=== PATIENT | male | born 1940 | race Hispanic/Latino ===

== ENCOUNTER 2017-07-23 09:37 | Outpatient (CLI) | payer MEDICARE ==
--- NOTE | 2017-07-23 11:04 | PRG ---
DATE OF SERVICE: 07/23/2017 HISTORY: Mr. Gilson Lindsay is a very pleasant 76-year-old gentleman accompanied by his son, who present s to the [facility] for evaluation of an ulceration of the left heel. A bone scan obtained on 03/2017 revealed white blood cell accumulation at the posterior aspect of the left calcaneus consisten t with ongoing infection. The patient was previously seen in consultation by Dr. Brent Birmingham. The patient's son previously stated that he and the patient were told that antibiotic therapy was not wa rranted. The patient continues to receive dressing changes of Medihoney for the ulceration of the le ft heel 3 times per week after cleansing and irrigation with the assistance of Home Health. The davina ent's son again states that Mr. Lindsay is utilizing his Heelift boot at all times. PHYSICAL EXAMINATION: VITAL SIGNS: Temperature 97.5, pulse 78, respirations 18, blood pressure 129/57. Accu-Chek 145. EXTREMITIES: The ulceration of the left heel measures approximately 0.5 x 0.7 cm. The dimensions of the wound at the time of the patient's visit on 05/16/2017 were approximately 1.5 x 0.9 cm. Granula tion tissue is present within the wound margins. No purulent drainage is associated with the wound. No erythema of the skin surrounding the wound is present. No maceration of the skin of the periwoun d is noted. No significant edema of the left foot or lower leg is present on exam today. ASSESSMENT AND PLAN: 1. Left heel ulceration as described above. Dressing changes of Medihoney, 4 x 4s, and Kerlix will be continued 3 times per week after cleansing and irrigation with the assistance of Home Health. The patient is to continue to utilize his Heelift boot at all times. As stated above, the patient has b een seen in consultation by Dr. Brent Birmingham of Infectious Diseases. The patient's son previously s tated that he and the patient were told that antibiotic therapy was not warranted. I will see Mr. Me schmidt again in 3 weeks. 2. Diabetes mellitus. The patient's Accu-Chek in clinic today is 145. The patient has been reminde d that for optimal wound healing, his blood glucoses should remain below 150. 3. Hypothyroidism. 4. End-stage renal disease. 5. History of atrial fibrillation. 6. Gastroesophageal reflux disease. 7. Prostate carcinoma, status post radiation therapy. 8. Skin carcinoma.
== END 2017-07-23 09:38 | disposition home or self-care (01) ==
LOC: WCC 09:37
PROVIDERS: ATTEND Family Medicine
DX: L97.429 Non-pressure chronic ulcer of left heel and midfoot with unspecified severity (principal); E11.622 Type 2 diabetes mellitus with other skin ulcer; E03.9 Hypothyroidism, unspecified; E11.22 Type 2 diabetes mellitus with diabetic chronic kidney disease; N18.6 End stage renal disease; K21.9 Gastro-esophageal reflux disease without esophagitis; C44.90 Unspecified malignant neoplasm of skin, unspecified
CPT/HCPCS: 97602

== ENCOUNTER 2017-08-13 09:29 | Outpatient (CLI) | payer MEDICARE ==
--- NOTE | 2017-08-13 10:23 | PRG ---
DATE OF SERVICE: 08/13/2017 HISTORY: Mr. Gilson Lindsay is a very pleasant 76-year-old gentleman accompanied by his son who prese nts to the Wound Center for evaluation of an ulceration of the left heel. A bone scan obtained on revealed white blood cell accumulation at the posterior aspect of the left calcaneus consist ent with ongoing infection. The patient was previously seen in consultation by Dr. Brent Birmingham. T he patient's son previously stated that he and the patient was told that antibiotic therapy was not w arranted. The patient continues to receive dressing changes of Medihoney for the ulceration of the l eft heel 3 times per week after cleansing and irrigation with the assistance of Home Health. Again, the patient's son states that Mr. Lindsay is utilizing his Heelift boot at all times. PHYSICAL EXAMINATION: VITAL SIGNS: Temperature 97.6, pulse 77, respirations 18, blood pressure 118/44. Accu-Chek 259. EXTREMITIES: The ulceration of the left heel measures approximately 0.5 x 0.2 cm. The dimensions of the wound at the time of the patient's visit on 07/23/2017 were approximately 0.5 x 0.7 cm. Granula tion tissue is present within the wound margins. No purulent drainage is associated with the wound. No erythema of the skin surrounding the wound is present. No maceration of the skin of the periwoun d is noted. No significant edema of the left foot or lower leg is present on exam today. ASSESSMENT AND PLAN: 1. Left heel ulceration as described above. Dressing changes of Medihoney will be discontinued. Dr messina changes of Silvercel, 4 x 4s and Kerlix are to be performed 3 times per week after cleansing a nd irrigation with the assistance of Home Health. The patient is to continue to utilize his Heelift boot at all times. As stated above, the patient has been seen in consultation by Dr. Brent maya f Infectious Diseases. The patient's son previously stated that he and the patient were told that an tibiotic therapy was not warranted. I will see Mr. Lindsay again in 3-4 weeks if his wound is still pr esent at this time. 2. Diabetes mellitus. The patient's Accu-Chek in clinic today is 259. The patient has been reminde d that for optimal wound healing, his blood glucoses should remain below 150. 3. Hypothyroidism. 4. End-stage renal disease. 5. History of atrial fibrillation. 6. Gastroesophageal reflux disease. 7. Prostate carcinoma, status post radiation therapy. 8. Skin carcinoma.
[2017-08-13] MEDS ORDERED: Sodium Chloride 0.9% 15 ML NEB ONE (17:06)
== END 2017-08-13 09:30 | disposition home or self-care (01) ==
LOC: WCC 09:29
PROVIDERS: ATTEND Family Medicine
DX: E11.621 Type 2 diabetes mellitus with foot ulcer (principal); L97.429 Non-pressure chronic ulcer of left heel and midfoot with unspecified severity; E11.22 Type 2 diabetes mellitus with diabetic chronic kidney disease; E03.9 Hypothyroidism, unspecified; N18.6 End stage renal disease; K21.9 Gastro-esophageal reflux disease without esophagitis; I48.91 Unspecified atrial fibrillation; C61 Malignant neoplasm of prostate; C44.90 Unspecified malignant neoplasm of skin, unspecified
CPT/HCPCS: 36416; 97602; A4218

== ENCOUNTER 2017-09-10 10:01 | Outpatient (CLI) | payer MEDICARE ==
--- NOTE | 2017-09-10 11:19 | PRG ---
DATE OF SERVICE: 09/10/2017 HISTORY: Mr. Gilson Lindsay is a very pleasant 76-year-old gentleman accompanied by his son who prese nts to the Wound Center for evaluation of an ulceration of the left heel. A bone scan obtained on revealed white blood cell accumulation at the posterior aspect of the left calcaneus consist ent with ongoing infection. The patient was previously seen in consultation by Dr. Brent Birmingham. T he patient's son previously stated that he and the patient were told that antibiotic therapy was not warranted. The patient has been receiving dressing changes of Silvercel for the ulceration of the le ft heel 3 times per week after cleansing and irrigation with the assistance of the patient's . T he patient's son states that Mr. Lindsay is no longer utilizing his Heelift boot. PHYSICAL EXAMINATION: VITAL SIGNS: Temperature 97.3, pulse 85, respirations 17, blood pressure 128/59, Accu-Chek 125. EXTREMITIES: The ulceration of the left heel measures approximately 0.8 x 0.9 cm. The dimensions of the wound at the time of the patient's visit on 08/13/2017 were approximately 0.5 x 0.2 cm. Granula tion tissue is present within the wound margins. No purulent drainage is associated with the wound. No erythema of the skin surrounding the wound is present. No maceration of the skin of the periwoun d is noted. No significant edema of the left foot or lower leg is present on exam today. ASSESSMENT AND PLAN: 1. Left heel ulceration as described above. Dressing changes of Silvercel and bordered gauze are to be performed 3 times per week after cleansing and irrigation with the assistance of the patient's wi fe. I have encouraged the patient to utilize his Heelift boot at least at night. As stated above, t he patient has been seen in consultation by Dr. Brent Birmingham of Infectious Diseases. The patient's son previously stated that he and the patient were told that antibiotic therapy was not warranted. I will see Mr. Lindsay again in four weeks if the wound is still present at this time. 2. Diabetes mellitus. The patient's Accu-Chek in clinic today is 125. The patient has been reminde d that for optimal wound healing, his blood glucoses should remain below 150. 3. Hypothyroidism. 4. End-stage renal disease. 5. History of atrial fibrillation. 6. Gastroesophageal reflux disease. 7. Prostate carcinoma, status post radiation therapy.
[2017-09-10] MEDS ORDERED: Lidocaine 2% Jelly 5 ML TUBE ONE (13:31)
[2017-09-10] MEDS ORDERED: Sodium Chloride 0.9% 15 ML NEB ONE (13:31)
== END 2017-09-10 10:02 | disposition home or self-care (01) ==
LOC: WCC 10:01
PROVIDERS: ATTEND Family Medicine
DX: E11.621 Type 2 diabetes mellitus with foot ulcer (principal); L97.429 Non-pressure chronic ulcer of left heel and midfoot with unspecified severity; E03.9 Hypothyroidism, unspecified; E11.22 Type 2 diabetes mellitus with diabetic chronic kidney disease; N18.6 End stage renal disease; I48.91 Unspecified atrial fibrillation; K21.9 Gastro-esophageal reflux disease without esophagitis; Z85.46 Personal history of malignant neoplasm of prostate
CPT/HCPCS: 97602; A4218

== ENCOUNTER 2017-10-15 09:50 | Outpatient (CLI) | payer MEDICARE ==
--- NOTE | 2017-10-15 11:04 | PRG ---
DATE OF SERVICE: 10/15/2017 HISTORY: Mr. Gilson Lindsay is a very pleasant 77-year-old gentleman accompanied by his son who prese nts to the [facility]ound Center for evaluation of an ulceration of the left heel. A bone scan obtained on revealed white blood cell accumulation at the posterior aspect of the left calcaneus consist ent with ongoing infection. The patient was previously seen in consultation by Dr. Brent Birmingham. T he patient's son previously stated that he and the patient were told that antibiotic therapy was not warranted. The patient has been receiving dressing changes of Silvercel for the ulceration of the le ft heel 3 times per week after cleansing and irrigation with the assistance of Home Health. The davina ent's son states that Mr. Lindsay has also been utilizing his Heelift boot as previously prescribed. PHYSICAL EXAMINATION: VITAL SIGNS: Temperature 97.5, pulse 69, respirations 18, and blood pressure 87/43. EXTREMITIES: The ulceration of the left heel measures approximately 0.2 x 0.6 cm. The dimensions of the wound at the time of the patient's visit on 09/10/2017 were approximately 0.8 x 0.9 cm. Granula tion tissue is present within the wound margins. No purulent drainage is associated with the wound. No erythema of the skin surrounding the wound is present. No maceration of the skin of the periwoun d is noted. No significant edema of the left foot is present on exam today. ASSESSMENT AND PLAN: 1. Left heel ulceration as described above. Dressing changes of Silvercel and bordered gauze will b e continued 3 times per week after cleansing and irrigation with the assistance of Home Health. I love ve asked the patient to continue to utilize his Heelift boot at all times. As stated above, the davina ent has been seen in consultation by Dr. Brent Birmingham of Infectious Diseases. The patient's son pre viously stated that he and the patient were told that antibiotic therapy was not warranted. I will s ee Mr. Lindsay again in 4 weeks if the wound is still present at this time. 2. Diabetes mellitus. Accu-Cheks will be obtained at the time of the patient's clinic visits. The patient has been reminded that for optimal wound healing, his blood glucoses should remain below 150. 3. Hypothyroidism. 4. End-stage renal disease. 5. History of atrial fibrillation. 6. Gastroesophageal reflux disease. 7. Prostate carcinoma, status post radiation therapy.
[2017-10-15] MEDS ORDERED: Sodium Chloride 0.9% 15 ML NEB ONE (11:11)
== END 2017-10-15 09:51 | disposition home or self-care (01) ==
LOC: WCC 09:50
PROVIDERS: ATTEND Family Medicine
DX: E11.621 Type 2 diabetes mellitus with foot ulcer (principal); L97.429 Non-pressure chronic ulcer of left heel and midfoot with unspecified severity; E03.9 Hypothyroidism, unspecified; E11.22 Type 2 diabetes mellitus with diabetic chronic kidney disease; I48.91 Unspecified atrial fibrillation; K21.9 Gastro-esophageal reflux disease without esophagitis; N18.6 End stage renal disease; C61 Malignant neoplasm of prostate
CPT/HCPCS: 97602; A4218

== ENCOUNTER 2017-11-17 05:48 | Emergency (ER) | payer MEDICARE ==
[2017-11-17 06:58] LABS: ALT (SGPT) Less than 7 U/L (8-55); AST (SGOT) 16 U/L (5-34); Albumin 3.3 g/dL (3.4-4.8); Alkaline Phosphatase 65 U/L (40-150); Anion Gap 16 mmol/L (10-20); BUN (Urea Nitrogen) 46 mg/dL (8.4-25.7); Bilirubin, Total 0.8 mg/dL (0.2-1.2); Calc. Creatinine Clearance 0 mL/min (70-130); Calcium 8.8 mg/dL (7.8-10.44); Carbon Dioxide 24 mmol/L (23-31); Chloride 98 mmol/L (98-107); Estimated GFR-MDRD 16; Globulin 3.6 g/dL (2.4-3.5); Glucose 149 mg/dL (83-110); Potassium 4.6 mmol/L (3.5-5.1); Protein, Total 6.9 g/dL (5.8-8.1); Sodium 133 mmol/L (136-145)
[2017-11-17 07:03] LABS: CKMB 1.5 ng/mL (0-6.6); Troponin I 0.017 ng/mL (< 0.028)
[2017-11-17 07:10] LABS: #Basophils 0.1 thou/uL (0.0-0.2); #Eosinphils 0.1 thou/uL (0.0-0.7); #Lymphocytes 0.8 thou/uL (1.20-3.40); #Monocytes 0.6 thou/uL (0.11-0.59); #Neutrophils 6.6 thou/uL (1.40-6.50); %Basophils 1.2 % (0.0-1.0); %Eosinophils 1.4 % (0.0-10.0); %Lymphocytes 9.8 % (21.0-51.0); %Monocytes 7.2 % (0.0-10.0); %Neutrophils 80.5 % (42.0-75.0); Hemoglobin 11.4 g/dL (14.0-18.0); MDiff Complete? YES; Macrocytosis SLIGHT = 6-15 cells (100X) (0-5/hpf); Mean Corpuscular HGB CONC 31.5 g/dL (32.0-36.0); Mean Corpuscular Hemoglobin 35.5 pg (27.0-31.0); Mean Platelet Volume 8.9 fL (7.4-10.4); PLT Morphology Comment Appears Decreased; Platelet Count 88 thou/uL (130-400); RBC Distribution Width 16.3 % (11.5-14.5); Red Blood Cell (RBC) Count 3.23 mill/uL (4.70-6.10); White Blood Cell (WBC) Count 8.1 thou/uL (4.8-10.8)
--- NOTE | 2017-11-17 07:48 | CT ---
PRELIMINARY REPORT/[facility]/EMERGENCY AFTER HOURS PROCEDURE: EXAM: CT Head Without Intravenous Contrast CLINICAL HISTORY: 77 years old, male; Signs and symptoms; Other: Unresposnive; Patient HX: M77 was found this morning u nresponsive. Nh preformed sternal rub to try to wake him up. Ems arrived on scene and was about to st art chest compressions, when the pt woke up. Pt is now awake, and complaining of tailbone pain. Pt does dialysis sunday//sunday TECHNIQUE: Axial computed tomography images of the head/brain without intravenous contrast. COMPARISON: No relevant prior studies available. FINDINGS: Brain: Mild atrophy and white matter hypodensities compatible with chronic microvascular ischemic naomi nge. No hemorrhage. Ventricles: Normal. Bones/joints: Unremarkable. No acute fracture. Soft tissues: Normal. Sinuses: Unremarkable. Mastoid air cells: Unremarkable. No mastoid effusion. IMPRESSION: No acute findings. Thank you for allowing us to participate in the care of your patient. Dictated and Authenticated by: Nader Cooper MD 11/17/2017 7:33 AM Central Time ([place] & [place]) FINAL REPORT EMERGENT AFTER HOURS CT BRAIN: IMPRESSION: I agree with the preliminary interpretation given by [facility]. No evidence for intracranial hemorrhage or mass effect. Extensive atherosclerotic vascular calcifications are seen. POS: ANNELIESE
--- NOTE | 2017-11-17 08:27 | RAD ---
PORTABLE CHEST: Date: 11/17/17 PROVIDED CLINICAL HISTORY: Altered mental status. FINDINGS: Comparison is made with the study dated 11/20/16. Cardiac silhouette may be enlarged. There is opacification of much of the right hemithorax, which may be on the basis of pleural and/or parenchymal opacity. Some component of this may be on the basis of prominence of the mediastinal silhouette and consolidation of right hemidiaphragm. Patchy air space disease involves the left lung. No evidence for pneumothorax. Right-sided cardiac pacing device is ag ain seen. IMPRESSION: Right hemithoracic opacity as described above. This is not well characterized radiographically and co rrelation with chest CT should be considered. POS: ANNELIESE
--- NOTE | 2017-11-17 08:49 | CT ---
CT CHEST WITHOUT CONTRAST: Date: 11/17/17 PROVIDED CLINICAL HISTORY: Altered mental status, abnormal chest radiograph. FINDINGS: The heart is conspicuously enlarged, primarily on the basis of right-sided ventricular and atrial enl argement. Extensive atherosclerotic vascular calcifications are noted. Right-sided cardiac pacing dev ice is seen with lead tip within the right ventricle. There is a small amount of pericardial fluid. There is extensive consolidation involving essentially the entire right lung. There is a mild pleural effusion likely also present. There is extensive fluid density throughout the right lower lobe bronc hus and subsequent airway. There is opacification of portions of the right upper and right middle lob e bronchial tree. There is a mild to moderate left pleural effusion. Parenchymal changes involving th e left lung compatible with subsegmental atelectasis or scarring noted. Evaluation for thoracic lymph node enlargement is limited. There is no evidence for pneumothorax. Partially visualized upper abdomen demonstrates free intraperitoneal fluid about the liver and spleen . Extensive noncircumscribed fluid density is seen within the region subcutaneous adipose layer. The osseous structures demonstrate no concerning osteoblastic or osteolytic lesions. IMPRESSION: 1. Extensive consolidation involving the right lung compatible with pneumonia/pneumonitis. This is p resumably on the basis of aspiration given the extensive fluid/opacification seen involving the right -sided airway. 2. Bilateral pleural effusions, small pericardial effusion, ascites, and soft tissue findings sugges ting anasarca. POS: LEE ANNH
[2017-11-17] MEDS ORDERED: Azithromycin 500 MG VIAL ONE (12:12)
[2017-11-17] MEDS ORDERED: Levofloxacin 500 mg/D5W 100 ml Premix Bag ONE (12:36)
--- NOTE | 2017-12-01 22:39 | EKG ---
Test Reason : Blood Pressure : / mmHG Vent. Rate : 070 BPM Atrial Rate : 070 BPM P-R Int : 186 ms QRS Dur : 062 ms QT Int : 360 ms P-R-T Axes : 088 000 087 degrees QTc Int : 388 ms Electronic Ventricular Pacemaker Left bundle branch block pattern consistent with pacer Confirmed by ALBERTO MACIEL, ROBER ([id number]), editor greeting card ASTON OROZCO ([id number]) on 12/01/2017 10:39:20 PM Referred By: Confirmed By:ROBER DOMINGUEZ MD
== END 2017-11-17 17:53 ==
LOC: ERS 05:48
DX: J18.9 Pneumonia, unspecified organism (principal); E03.9 Hypothyroidism, unspecified; N18.6 End stage renal disease; E11.9 Type 2 diabetes mellitus without complications; E78.5 Hyperlipidemia, unspecified; Z86.718 Personal history of other venous thrombosis and embolism; Z79.899 Other long term (current) drug therapy
CPT/HCPCS: 36415; 70450; 71045; 71250; 80053; 82140; 82553; 84484; 85025; 87040; 93005; 94760; 96365; 96367; J0456; J1956

== ENCOUNTER 2017-11-27 17:56 | Emergency (ER) | payer MEDICARE ==
[2017-11-27 18:52] LABS: #Eosinphils 0.1 thou/uL (0.0-0.7); #Lymphocytes 0.7 thou/uL (1.20-3.40); #Monocytes 0.2 thou/uL (0.11-0.59); #Neutrophils 3.9 thou/uL (1.40-6.50); %Basophils 0.2 % (0.0-1.0); %Eosinophils 1.1 % (0.0-10.0); %Lymphocytes 14.3 % (21.0-51.0); %Monocytes 4.5 % (0.0-10.0); %Neutrophils 79.8 % (42.0-75.0); Hemoglobin 12.4 g/dL (14.0-18.0); Mean Corpuscular HGB CONC 30.1 g/dL (32.0-36.0); Mean Corpuscular Hemoglobin 35.3 pg (27.0-31.0); Mean Platelet Volume 9.2 fL (7.4-10.4); Platelet Count 88 thou/uL (130-400); RBC Distribution Width 16.6 % (11.5-14.5); Red Blood Cell (RBC) Count 3.51 mill/uL (4.70-6.10); White Blood Cell (WBC) Count 4.9 thou/uL (4.8-10.8)
[2017-11-27 19:10] LABS: ALT (SGPT) 8 U/L (8-55); AST (SGOT) 12 U/L (5-34); Albumin 2.9 g/dL (3.4-4.8); Alkaline Phosphatase 119 U/L (40-150); Anion Gap 13 mmol/L (10-20); BUN (Urea Nitrogen) 20 mg/dL (8.4-25.7); Bilirubin, Total 0.9 mg/dL (0.2-1.2); Calc. Creatinine Clearance 0 mL/min (70-130); Calcium 8.3 mg/dL (7.8-10.44); Carbon Dioxide 29 mmol/L (23-31); Chloride 99 mmol/L (98-107); Estimated GFR-MDRD 26; Globulin 3.8 g/dL (2.4-3.5); Glucose 112 mg/dL (83-110); Potassium 3.8 mmol/L (3.5-5.1); Protein, Total 6.7 g/dL (5.8-8.1); Sodium 137 mmol/L (136-145)
--- NOTE | 2017-11-27 20:37 | RAD ---
PORTABLE CHEST: 11/27/17 HISTORY: Hypotension. COMPARISON: 11/17/17. Opacification of the right hemithorax is noted. Recent CT of 11/17/17 revealed dense consolidation of the right lung. Left lung shows hazy infiltrate in the left mid and lower lung with vascular engorgement. This could represent areas of edema or inflammatory infiltrate. A single lead pacemaker device is unchanged. IMPRESSION: Opacification of the right hemithorax consistent with dense consolidation of right lung which has bee n described on recent CT. There is hazy and/or edema in the left mid and lower lung. POS: AGW
== END 2017-11-27 21:37 | disposition home or self-care (01) ==
LOC: ERS 17:56
DX: I95.9 Hypotension, unspecified (principal); E11.22 Type 2 diabetes mellitus with diabetic chronic kidney disease; N18.6 End stage renal disease; E03.9 Hypothyroidism, unspecified; E78.5 Hyperlipidemia, unspecified; Z86.718 Personal history of other venous thrombosis and embolism; Z79.899 Other long term (current) drug therapy; Z99.2 Dependence on renal dialysis; Z66 Do not resuscitate
CPT/HCPCS: 36415; 71045; 80053; 83605; 85025; 87040; 93005